=== PATIENT | female | born 1980 | race Caucasian/White ===

== ENCOUNTER 2020-12-25 21:17 | Emergency (ER) | payer OTHER, MEDICAID, SELFPAY ==
[2020-12-25 21:52] VITALS: BP 190/81; PULSE 83; RESP 18; TEMP 37; O2SAT 96; BMI 51.5
[2020-12-25 21:57] LABS: Bilirubin Urine UA NEGATIVE (NEGATIVE); Color Urine UA YELLOW; Glucose Urine UA NEGATIVE (Negative); Ketones Urine UA NEGATIVE (NEGATIVE); Leukocyte Esterase Urine UA 1+ (NEGATIVE); Nitrite Urine UA POSITIVE (Negative); Occult Blood Urine UA 1+ (Negative); Protein Urine UA TRACE (Negative); Urobilinogen Urine UA 0.2 E.U./dL (0.2)
[2020-12-25 21:59] LABS: Appearance Urine UA Slightly Cloudy
[2020-12-25 22:02] LABS: Bacteria Urine Moderate (10-30); RBC Urine 1-5/HPF (0-5/HPF); Squamous Epithelial Cell Urine 1-5 /HPF (0-5/HPF); WBC Urine 10-30/HPF (0-5/HPF)
[2020-12-25 22:03] LABS: Culture Indicated Urine Specimen Cultured
[2020-12-25 23:08] VITALS: BP 153/79; PULSE 86; RESP 18; O2SAT 97
[2020-12-25] MEDS: ONDANSETRON 4 MG ODT PREPACK 1 BOTTLE MISC (23:11)
[2020-12-25] MEDS: cephALEXin 250 MG PREPACK 1 BOTTLE MISC (23:11)
[2020-12-25] MEDS: HYDROCODONE/ACET 5/325 PREPACK 1 BOTTLE MISC (23:11)
--- NOTE | 2020-12-26 06:05 | ED.FEMALEGU ---
HPI - Female Genitourinary General Chief complaint: Urogenital-Female Stated complaint: thinks UTI Time Seen by Provider: 12/25/20 22:57 Source: patient Mode of arrival: Ambulatory History of Present Illness HPI Narrative: 40-year-old female nonsmoker with noncontributory medical history presents with a chief complaint of 4 days of urinary symptoms including dysuria, frequency and urgency. She denies any hematuria vaginal bleeding or discharge. She does have some mild low back pain and nausea up. She has had UTI in the past and states this feels similar. She denies any upper respiratory complaints such as runny nose, sore throat or cough. Related Data Home Medications Medication Instructions Recorded Confirmed cephalexin 500 mg capsule (Keflex) 500 mg PO QDAY #0 03/01/12 sertraline 50 mg tablet (Zoloft) 50 mg PO QDAY #0 03/01/12 Previous Rx's Medication Instructions Recorded cefuroxime axetil 500 mg tablet 500 mg PO BID #14 tab 12/25/20 hydrocodone 5 mg-acetaminophen 325 1 tab PO Q4-6H PRN #10 tab 12/25/20 mg tablet ondansetron 4 mg disintegrating 4 mg PO TID-QID PRN #10 tab 12/25/20 tablet Allergies Allergy/AdvReac Type Severity Reaction Status Date / Time morphine Allergy Verified 12/25/20 21:52 Review of Systems Review of Systems Narrative: GENERAL: See HPI HEENT: Denies sinus pain, ear pain, sore throat, difficulty swallowing, dizziness. RESPIRATORY: Denies dyspnea, cough, wheezing, hemoptysis, sputum. CARDIOVASCULAR: Denies chest pain, palpitations, orthopnea, edema, GASTROINTESTINAL: See HPI : See HPI MUSCULOSKELETAL: denies weakness, joint pain, or bony pain SKIN: Denies rash, skin lesions, or other NEUROLOGIC: Denies weakness, headache, numbness, change in speech, confusion, seizures, incoordination. PSYCHIATRIC: No concerning psychosocial issues. 12 point review of systems is negative except for those stated above Patient History Substance Use Type: does not use Exam Narrative Exam Narrative: GEN: AOx3 and in mild distress EYES: Pupils are equal, round, and reactive to light and accommodation. Extraoccular muscles are intact bilaterally. There is no subconjunctival hemorrhage or exudate. CHEST: Lungs are clear to auscultation bilaterally and free of wheezes, rales, or rhonchi. Heart rate is regular rhythm, there are no murmurs, clicks, rubs, or gallops. There is no chest wall tenderness. ABD: Abdomen is soft and nontender. There is no guarding or rebound. Bowel sounds are normal in all 4 quadrants. There is no mass or organomegaly. EXT: Full painless ROM of all extremities with no loss of sensation or strength. Back: Mild CVA tenderness SKIN: Warm, pink, and dry. No erythema or rash Initial Vital Signs Initial Vital Signs: Vital Signs Temperature 98.6 F 12/25/20 21:52 Pulse Rate 83 12/25/20 21:52 Respiratory Rate 18 12/25/20 21:52 Blood Pressure 190/81 H 12/25/20 21:52 Pulse Oximetry 96 12/25/20 21:52 Course Orders Ordered: ED Orders 12/25/20 21:50 Urinalysis and Microscopic Stat Urine Culture Stat Discontinued Medications Hydrocodone Bitart/Acetaminophen (Hydrocodone/Acet 5/325 Prepack) 1 bottle MISC SEEINSTR ONE Stop: 12/25/20 23:05 Last Admin: 12/25/20 23:11 Dose: 1 bottle Documented by: DAI Cefazolin Sodium (Cephalexin 250 Mg Prepack) 1 bottle MISC SEEINSTR ONE Stop: 12/25/20 23:05 Last Admin: 12/25/20 23:11 Dose: 500 mg Documented by: DAI Ondansetron HCl (Ondansetron 4 Mg Odt Prepack) 1 bottle MISC SEEINSTR ONE Stop: 12/25/20 23:05 Last Admin: 12/25/20 23:11 Dose: 1 bottle Documented by: DAI Vital Signs Vital signs: Vital Signs - 8 hr 12/25/20 23:08 Pulse Rate 86 Respiratory Rate 18 Blood Pressure 153/79 H Pulse Oximetry 97 MDM - Female Genitourinary Lab Data Labs: Lab Results 12/25/20 Range/Units 21:50 Urine Color Yellow Urine Appearance Slightly cloudy Urine pH 6.0 (4.5-8.0) Ur Specific [place] 1.020 (1.000-1.035) Urine Protein Trace H (Negative) Urine Glucose (UA) Negative (Negative) g/dL Urine Ketones Negative (NEGATIVE) Urine Occult Blood 1+ H (Negative) Urine Nitrate Positive H (Negative) Urine Bilirubin Negative (NEGATIVE) Urine Urobilinogen 0.2 (0.2) E.U./dL Ur Leukocyte Esterase 1+ H (NEGATIVE) Urine RBC 1-5/hpf (0-5/HPF) Urine WBC 10-30/hpf H (0-5/HPF) Ur Squamous Epith Cells 1-5 /hpf (0-5/HPF) Urine Bacteria Moderate (10-30) H (None) Ur Culture Indicated? Specimen cultured Discharge Plan Departure Patient Disposition: Home Clinical Impression: Urinary tract infection Qualifiers: Urinary tract infection type: acute cystitis Instructions: DI for Urinary Tract Infection (UTI) Activity Restrictions/Additional Instructions: *You have been diagnosed with [urinary tract infection] *What to do: *Please continue to take your regular medications as directed. [ x] New medication prescriptions sent to your pharmacy: [[facility] in [place] ] [ ] New medication written as a paper prescription [ ] No new medications given *Please follow up with your primary care provider in 2-3 days, call for an appointment. Let them know you were seen in the Emergency Department and that we ask that you be seen in follow up. We will electronically transmit a record of today's note if your PCP is in our system *If you do not have a primary care provider please contact the [facility] Resource line at [phone]. They will ask some questions about your medical history and help get you set up with a doctor in the community. *Return to Emergency Department if you should have any new, worsening or concerning symptoms, such as [fever greater than 101 F, shaking chills, worsening pain, persistent vomiting or other bothersome symptoms] Prescriptions: New hydrocodone-acetaminophen 5-325 mg tablet 1 tab PO Q4-6H PRN (Reason: pain) Qty: 10 RF: 0 cefuroxime axetil 500 mg tablet 500 mg PO BID Qty: 14 RF: 0 ondansetron 4 mg tablet,disintegrating 4 mg PO TID-QID PRN (Reason: nausea and vomiting) Qty: 10 RF: 0 No Action sertraline [Zoloft] 50 MG tablet 50 mg PO QDAY Qty: 0 RF: 0 cephalexin [Keflex] 500 MG capsule 500 mg PO QDAY Qty: 0 RF: 0 Referrals: Jose L Enriquez MD [Primary Care Provider] -
== END 2020-12-25 23:25 | disposition home or self-care (01) ==
PROVIDERS: Emergency Provider Emergency Medicine; PCP Family Medicine
DX: N30.00 Acute cystitis without hematuria (principal); M54.5 Low back pain; R11.0 Nausea
CPT/HCPCS: 81001; 87077; 87086; 87186; 99281; 99283

== ENCOUNTER 2023-03-19 21:46 | Emergency (ER) | payer OTHER, MEDICAID, SELFPAY ==
[2023-03-19 21:50] VITALS: BP 149/75; PULSE 77; RESP 16; TEMP 36.4; O2SAT 96; BMI 51.5
--- NOTE | 2023-03-19 21:55 | DI.RAD.S_ITS ---
PROCEDURE: XR TOE RT MIN 2V INDICATIONS: patient kicked table accidentally; hit toe TECHNIQUE: 3 views of the 2nd toe(s) acquired. COMPARISON: Outside Film, CR, XR FOOT 3+ VIEWS RIGHT, 04/14/2019, 8:13. FINDINGS: Bones: No fractures or dislocations. No suspicious bony lesions. Soft tissues: No suspicious soft tissue densities. IMPRESSION: No fracture identified. Dictated by: Guevara Redding M.D. on 03/19/2023 at 23:04 Approved by: Guevara Redding M.D. on 03/19/2023 at 23:05
--- NOTE | 2023-03-19 23:17 | ED.LOWEXIN ---
HPI - Extremity Injury (Lower) General Chief Complaint: Extremity Injury, Lower Stated Complaint: Rt side toe injury Time Seen by Provider: 03/19/23 23:10 Source: patient and family Mode of arrival: Wheelchair History of Present Illness HPI Narrative: 43-year-old female who is here for evaluation of a right 2nd toe injury. This evening she states that she hit her toe when a piece of furniture. Has had difficulty walking since then. Has had swelling. She has had surgery on her right foot in the past. Related Data Home Medications Medication Instructions Recorded Confirmed cephalexin 500 mg capsule (Keflex) 500 mg PO QDAY ##0 03/01/12 sertraline 50 mg tablet (Zoloft) 50 mg PO QDAY ##0 03/01/12 Previous Rx's Medication Instructions Recorded cefuroxime axetil 500 mg tablet 500 mg PO BID #14 tabs 12/25/20 hydrocodone 5 mg-acetaminophen 325 1 tab PO Q4-6H PRN pain #10 tabs 12/25/20 mg tablet ondansetron 4 mg disintegrating 4 mg PO TID-QID PRN nausea and 12/25/20 tablet vomiting #10 tabs Allergies Allergy/AdvReac Type Severity Reaction Status Date / Time morphine Allergy Verified 12/25/20 21:52 Review of Systems Constitutional Constitutional: Reports system reviewed and no additional complaints, except as documented Musculoskeletal Musculoskeletal: Reports system reviewed and no additional complaints, except as documented Integumentary/Breasts Skin/Breast: Reports system reviewed and no additional complaints, except as documented Patient History Social History Smoking Status: Never smoker Smoking Status: Never smoker Substance Use Type: does not use Exam Initial Vital Signs Initial Vital Signs: Vital Signs Temperature 97.5 F L 03/19/23 21:50 Pulse Rate 77 03/19/23 21:50 Respiratory Rate 16 03/19/23 21:50 Blood Pressure 149/75 H 03/19/23 21:50 Pulse Oximetry 96 03/19/23 21:50 Oxygen Delivery Method Room Air 03/19/23 21:50 Skin General: no rashes or lesions noted Extrem Other: Mild swelling to the 2nd toe of the right foot. There was no erythema. She is no foot tenderness. No Lisfranc tenderness. Course Orders Ordered: ED Orders 03/19/23 21:55 XR toe RT min 2V Stat Vital Signs Vital signs: Vital Signs - 8 hr 03/19/23 21:50 Temperature 97.5 F L Pulse Rate 77 Respiratory Rate 16 Blood Pressure 149/75 H Pulse Oximetry 96 Oxygen Delivery Method Room Air MDM - Extremity Injury (Lower) Imaging Data Extremity x-ray #1: Radiologist's Impression: PROCEDURE: XR TOE RT MIN 2V INDICATIONS: patient kicked table accidentally; hit toe TECHNIQUE: 3 views of the 2nd toe(s) acquired. COMPARISON: Outside Film, CR, XR FOOT 3+ VIEWS RIGHT, 04/14/2019, 8:13. FINDINGS: Bones: No fractures or dislocations. No suspicious bony lesions. Soft tissues: No suspicious soft tissue densities. IMPRESSION: No fracture identified. [facility] Narrative Medical decision making narrative: Neurovascularly intact. No fracture dislocation noted on the x-ray. We discussed kt taping it to the toe next to it. She was given an orthopedic shoe for comfort. Tylenol and ibuprofen for discomfort. Discharge Plan Departure Patient Disposition: Home Clinical Impression: Injury of toe on right foot Instructions: Toe Sprain Activity Restrictions/Additional Instructions: You can use the orthopedic shoe while your up and walking around. You can take this off to sleep and to shower. I also recommend using ice. I would not be surprised if you have some bruising that develops over the next couple days. You can also try kt taping the injured toe to the 1 next to it like we discussed. Return to the emergency department for new symptoms. Prescriptions: No Action sertraline [Zoloft] 50 MG tablet 50 mg PO QDAY Qty: 0 cephalexin [Keflex] 500 MG capsule 500 mg PO QDAY Qty: 0 hydrocodone-acetaminophen 5-325 mg tablet 1 tab PO Q4-6H PRN (Reason: pain) Qty: 10 0RF cefuroxime axetil 500 mg tablet 500 mg PO BID Qty: 14 0RF ondansetron 4 mg tablet,disintegrating 4 mg PO TID-QID PRN (Reason: nausea and vomiting) Qty: 10 0RF Referrals: Jose L Enriquez MD [Primary Care Provider] - Stand Alone Forms: Patient Portal/API
[2023-03-19 23:45] VITALS: BP 164/77; PULSE 78; RESP 18; TEMP 36.6; O2SAT 95
== END 2023-03-19 23:48 | disposition home or self-care (01) ==
PROVIDERS: Emergency Provider Emergency Medicine; PCP Family Medicine
DX: S99.921A Unspecified injury of right foot, initial encounter (principal); W22.03XA Walked into furniture, initial encounter
CPT/HCPCS: 73660; 99281; 99283